=== PATIENT | male | born 2000 | race African-American/Black ===

== ENCOUNTER 2020-05-27 22:05 | Inpatient (IN) | payer OTHER ==
[2020-05-27] MEDS ORDERED: Midazolam HCl 2 mg/2 ml Vial ONE (22:13)
[2020-05-27] MEDS ORDERED: Fentanyl 100 MCG/2 ML VIAL ONE ×2 (22:13→23:39)
[2020-05-27] MEDS ORDERED: Lidocaine 2% Jelly 5 ML TUBE ONE (22:13)
[2020-05-27] MEDS ORDERED: Ondansetron PF 4 MG/2 ML Vial ONE (22:23)
[2020-05-27] MEDS ORDERED: PROPOFOL 200 MG/20 ML VIAL ONE (22:23)
[2020-05-27] MEDS ORDERED: Rocuronium Bromide 10 MG/ML (10ML VIAL) ONE (22:23)
[2020-05-27] MEDS ORDERED: Succinylcholine 200 MG/10 ml SYRINGE FS ONE (22:23)
[2020-05-27] MEDS ORDERED: Dexamethasone 20 MG/5 ML VIAL ONE (22:23)
[2020-05-27] MEDS ORDERED: Lidocaine 1% w/Epinephrine 1:100K 20 ML VIAL ONE (22:31)
[2020-05-27] MEDS ORDERED: SUGAMMADEX SODIUM 500 MG/5 ML VIAL ONE (22:41)
[2020-05-27] MEDS ORDERED: Clindamycin/D5W 900 mg/50 ml Premix Bag ONE (22:41)
[2020-05-27] MEDS ORDERED: Promethazine HCl 25 MG/ML VIAL IM PRN (22:47)
[2020-05-27] MEDS ORDERED: Promethazine HCl 25 MG/ML VIAL SLOW IVP PRN (22:47)
[2020-05-27] MEDS ORDERED: HYDROmorphone 2 MG/ML VIAL SLOW IVP PRN (22:47)
[2020-05-27] MEDS ORDERED: Ondansetron HCl/PF 4 MG/2 ML Vial IVP PRN (22:47)
[2020-05-27] MEDS ORDERED: Ondansetron PF 4 MG/2 ML Vial IVP PRN (23:36)
[2020-05-28 00:16] VITALS: BMI 28.5
[2020-05-28] MEDS: Morphine 2 MG/ML VIAL SLOW IVP PRN ×4 (00:25→07:35)
[2020-05-28] MEDS: Sodium Chloride 0.45% 1,000 ML IV SCH ×3 (00:26→13:02)
[2020-05-28] MEDS: Vancomycin 1.5 GRAM/300 ML BAG 1.5 GM in Premix Bag 1 BAG IVPB SCH ×3 (02:14→18:14)
[2020-05-28] MEDS: Clindamycin/D5W 900 MG in Premix Bag 1 BAG IVPB SCH ×3 (05:02→21:16)
[2020-05-28 05:28] LABS: SARS-CoV-2 PCR by NAA Not Detected (NotDetected)
[2020-05-28 06:38] LABS: Hemoglobin 14.2 g/dL (14.0-18.0); Mean Corpuscular HGB CONC 30.6 g/dL (32.0-36.0); Mean Corpuscular Hemoglobin 26.8 pg (25.0-35.0); Mean Corpuscular Volume 87.5 fL (78.0-98.0); Mean Platelet Volume 6.9 fL (7.4-10.4); Platelet Count 313 thou/uL (130-400); RBC Distribution Width 12.2 % (11.5-14.5); Red Blood Cell (RBC) Count 5.28 mill/uL (4.00-5.20); White Blood Cell (WBC) Count 17.9 thou/uL (4.8-10.8)
[2020-05-28 06:55] LABS: Band 6 % (5-11); Lymphocytes 6 % (28-48); MDiff Complete? YES; Monocytes 4 % (0-4); Neutrophil 84 % (31-61); Platelet Morphology Comment Appears Adequate
[2020-05-28] MEDS: Hydrocodone-Acetamin 15 ML UDCUP PO PRN ×2 (09:40→18:19)
[2020-05-29 01:28] LABS: Vancomycin, Trough 11.8 ug/mL
[2020-05-29] MEDS: Hydrocodone-Acetamin 15 ML UDCUP PO PRN (02:06)
[2020-05-29] MEDS: VANCOMYCIN 2 GRAM/400 ML BAG 2 GM in Premix Bag 1 BAG IVPB SCH ×2 (02:07→09:37)
[2020-05-29] MEDS: Sodium Chloride 0.45% 1,000 ML IV SCH ×2 (02:08→09:39)
[2020-05-29] MEDS: Clindamycin/D5W 900 MG in Premix Bag 1 BAG IVPB SCH (06:29)
[2020-05-29] MEDS ORDERED: Acetaminophen 325 MG TAB PO PRN (07:59)
[2020-05-29] MEDS ORDERED: Ibuprofen 600 MG TAB PO PRN (08:00)
[2020-05-29 08:03] LABS: #Lymphocytes 2.1 thou/uL (1.20-3.40); #Monocytes 1.2 thou/uL (0.11-0.59); #Neutrophils 10.5 thou/uL (1.40-6.50); %Basophils 0.3 % (0.0-1.0); %Eosinophils 0.2 % (0.0-10.0); %Lymphocytes 14.8 % (28.0-48.0); %Monocytes 8.7 % (0.0-4.0); %Neutrophils 76.1 % (31.0-61.0); Hemoglobin 14.2 g/dL (14.0-18.0); Mean Corpuscular Hemoglobin 28.7 pg (25.0-35.0); Mean Corpuscular Volume 86.9 fL (78.0-98.0); Mean Platelet Volume 6.7 fL (7.4-10.4); Platelet Count 316 thou/uL (130-400); RBC Distribution Width 12.1 % (11.5-14.5); Red Blood Cell (RBC) Count 4.96 mill/uL (4.00-5.20); White Blood Cell (WBC) Count 13.9 thou/uL (4.8-10.8)
[2020-05-29 08:23] LABS: ALT (SGPT) 29 U/L (8-55); AST (SGOT) 85 U/L (10-45); Albumin 3.8 g/dL (3.5-5.0); Alkaline Phosphatase 69 U/L (50-130); Anion Gap 13 mmol/L (10-20); BUN (Urea Nitrogen) 13 mg/dL (8.4-21.0); Bilirubin, Total 0.5 mg/dL (0.2-1.2); Calc. Creatinine Clearance 186 mL/min (70-130); Calcium 9.3 mg/dL (7.8-10.44); Carbon Dioxide 23 mmol/L (22-29); Chloride 104 mmol/L (98-107); Globulin 3.2 g/dL (2.4-3.5); Glucose 96 mg/dL (70-105); Potassium 3.8 mmol/L (3.5-5.1); Sodium 136 mmol/L (136-145)
[2020-05-29 11:41] VITALS: BP 103/61; TEMP 98.4
== END 2020-05-29 14:10 | disposition home or self-care (01) | DRG 145 ==
LOC: SDC 22:05 → SURG B 05-28 00:08 → SDC 05-28 00:40 → SURG B 05-28 00:41
PROVIDERS: ADMIT Otolaryngology Plastic Surgery within the Head & Neck; ATTEND Otolaryngology Plastic Surgery within the Head & Neck
PROC: 0C9M8ZZ Drainage of Pharynx, Via Natural or Artificial Opening Endoscopic (ICD-10-PCS; principal; 2020-05-27)
DX: J39.0 Retropharyngeal and parapharyngeal abscess (principal); Z20.822 Contact with and (suspected) exposure to COVID-19
CPT/HCPCS: 36415; 80053; 80202; 85025; 87070; 87205; 87635; J1100; J2250; J2270; J2405; J2704; J3010; J3370; J3490; U0003; U0005